=== PATIENT | male | born 1980 | race Caucasian/White ===

== ENCOUNTER 2019-10-26 09:05 | Emergency (ER) | payer OTHER ==
--- NOTE | 2019-10-26 09:39 | EDM.PDOC ---
ED HPI GENERAL MEDICAL PROBLEM - General Chief Complaint: Bite:Animal, Insect Stated Complaint: SKIN COMPLAINT Time Seen by Provider: 10/26/19 09:15 Source of Information: Reports: Patient History Limitations: Reports: No Limitations - History of Present Illness INITIAL COMMENTS - FREE TEXT/NARRATIVE: The patient presents with a tick bite. He was in [place] yesterday and he ate at a picnic area. This morning when he went to take a shower he noticed at tick that attached to his left lower abdomen/pelvic area. He removed the tick. There is some erythema and edema around the area. He has been fatigued and tired. He is traveling for vacation. He has no fever, chills, cough, congestion or runny nose. Onset: Gradual Duration: Hour(s): Severity: Mild Improves with: Reports: None Worsens with: Reports: None Associated Symptoms: Reports: No Other Symptoms - Related Data Allergies Allergy/AdvReac Type Severity Reaction Status Date / Time No Known Allergies Allergy Verified 10/26/19 09:13 Past Medical History HEENT History: Reports: Impaired Vision Cardiovascular History: Reports: High Cholesterol - Past Surgical History Musculoskeletal Surgical History: Reports: Arthroscopic Knee Social & Family History - Family History Family Medical History: Noncontributory - Tobacco Use Smoking Status *Q: Never Smoker Second Hand Smoke Exposure: No - Recreational Drug Use Recreational Drug Use: Yes Drug Use in Last 12 Months: Yes Recreational Drug Type: Reports: Marijuana/Hashish Recreational Drug Use Frequency: Socially ED ROS GENERAL - Review of Systems Review Of Systems: See Below Constitutional: Reports: Fatigue. Denies: Fever, Chills HEENT: Reports: No Symptoms Respiratory: Reports: No Symptoms Cardiovascular: Reports: No Symptoms Endocrine: Reports: No Symptoms GI/Abdominal: Reports: No Symptoms : Reports: No Symptoms Musculoskeletal: Reports: No Symptoms Skin: Reports: No Symptoms ED EXAM, ANIMAL BITE - Physical Exam Exam: See Below Exam Limited By: No Limitations General Appearance: Alert, No Apparent Distress Ears: Normal External Exam Nose: Normal Inspection Head: Atraumatic, Normocephalic Neck: Normal Inspection Respiratory/Chest: No Respiratory Distress GI/Abdominal: Other (Small little abrasion with erythema and edema around it. This is in the left lower abdomen and pelvic area) Course - Vital Signs Last Recorded V/S: Last Vital Signs Temp 98.7 F 10/26/19 09:13 Pulse 67 07/05/20 09:13 Resp 16 10/26/19 09:13 BP 136/84 10/26/19 09:13 Pulse Ox 96 10/26/19 09:13 - Re-Assessments/Exams Free Text/Narrative Re-Assessment/Exam: 10/26/19 09:37 This does not appear to look like the classic erythema migraines with lymes disease. I feel he does have a cellulitis starting. I will get him on some doxycycline for 10 days. Departure - Departure Time of Disposition: 09:40 Disposition: Home, Self-Care 01 Condition: Good Clinical Impression: Cellulitis Qualifiers: Site of cellulitis: trunk Site of cellulitis of trunk: groin Qualified Code(s): L03.314 - Cellulitis of groin - Discharge Information *PRESCRIPTION DRUG MONITORING PROGRAM REVIEWED*: Not Applicable *COPY OF PRESCRIPTION DRUG MONITORING REPORT IN PATIENT RHODA: Not Applicable Referrals: PCP,Not In Area [Primary Care Provider] - Additional Instructions: Clean the area with warm soapy water 2 times per day and apply antibiotic ointment after. Do this for about 5 days. Take the doxycycline 2 times per day for 10 days. Please return or see your doctor if you are worse. Sepsis Event Note (ED) - Evaluation Sepsis Screening Result: No Definite Risk - Focused Exam Vital Signs: Vital Signs Temp Pulse Resp BP Pulse Ox 10/26/19 09:13 98.7 F 67 16 136/84 96
== END 2019-10-26 09:30 | disposition home or self-care (01) ==
LOC: JD.ED 09:05
DX: L03.314 Cellulitis of groin (principal)
CPT/HCPCS: 99283